=== PATIENT | male | born 1980 | race Caucasian/White ===

== ENCOUNTER 2025-03-10 11:04 | Outpatient (CLI) | payer OTHER, SELFPAY | END 2025-03-10 11:05 | disposition home or self-care (01) | PROVIDERS: Visit Provider Family Medicine | DX: Z13.0 Encounter for screening for diseases of the blood and blood-forming organs and certain disorders involving the immune mechanism (principal); Z13.1 Encounter for screening for diabetes mellitus; Z13.6 Encounter for screening for cardiovascular disorders | CPT/HCPCS: 80048; 80061 ==